=== PATIENT | male | born 1970 | race Caucasian/White ===

== ENCOUNTER 2020-04-23 13:04 | Inpatient (IN) | payer BC, OTHER ==
[~2020-04-23] VITALS: Ht 182.8 cm; Wt 204.7 kg
[~2020-04-23 13:04] MED LIST: CETI5TAB6 PO; HYDR-757 PO; MONT10TA21 PO
[2020-04-23] MEDS ORDERED: ACETAMINOPHEN 500 MG TAB (TYLENOL) PO PRN ×2 (13:45→16:30)
[2020-04-23] MEDS ORDERED: LACTATED RINGERS 1,000 ML IV ONE ×3 (13:45→16:12)
[2020-04-23 13:53] LABS: BASOPHILS % (AUTO) 1 % (0-10); EOSINOPHILS # (AUTO) 0.1 10^3/uL (0.0-0.3); EOSINOPHILS % (AUTO) 1 % (0-10); HEMATOCRIT 45 % (40-54); HEMOGLOBIN 13.5 g/dL (13.3-17.7); LYMPHOCYTES # (AUTO) 1.2 10^3/uL (1.0-4.0); LYMPHOCYTES % (AUTO) 27 % (12-44); MEAN CORPUSCULAR HEMOGLOBIN 23 pg (25-34); MEAN CORPUSCULAR HGB CONC 30 g/dL (32-36); MEAN CORPUSCULAR VOLUME 76 fL (80-99); MEAN PLATELET VOLUME 9.3 fL (9.0-12.2); MONOCYTES # (AUTO) 0.3 10^3/uL (0.0-1.0); MONOCYTES % (AUTO) 8 % (0-12); NEUTROPHILS # (AUTO) 2.8 10^3/uL (1.8-7.8); NEUTROPHILS % (AUTO) 64 % (42-75); PLATELET COUNT 201 10^3/uL (130-400); WHITE BLOOD COUNT 4.4 10^3/uL (4.3-11.0)
[2020-04-23 13:53] LABS: ABG BASE EXCESS 4.2 MMOL/L (-2.5-2.5); ABG OXYGEN SATURATION 95 % (94-100); ABG PCO2 48 MMHG (35-45); ABG PO2 83 MMHG (79-93); ABG TCO2 30.2 MMOL/L (21.0-31.0)
[2020-04-23 13:54] LABS: ALLENS TEST POSITIVE; INSPIRED O2 6 L; PATIENT TEMP 99.3; VENTILATOR NO
--- NOTE | 2020-04-23 13:57 | ED Respiratory ---
General Chief Complaint: Respiratory Problems Stated Complaint: COUGH,SOB, COVID + Nursing Triage Note: Pt ambulatory to ED. Pt reports being diagnosed COVID + yesterday. Pt reports symptoms for one week. Pt went to clinic today for chest xray and pt was sent to ED before having chest xray. Source: patient Exam Limitations: no limitations History of Present Illness Date Seen by Provider: Apr 23, 2020 Time Seen by Provider: 13:29 Initial Comments Patient presents the ER by private conveyance from urgent care with chief complaint of oxygen saturations of 90% on room air. No history of lung disease. No history of oxygen dependence. No pain. Took some naproxen this morning because he is been having fever and symptoms of Covid for about 1 week. He was diagnosed yesterday with Covid at the clinic. He follows with [facility] for primary care. No history of diabetes or cholesterol. No history of heart disease. No history of smoking. His is also in the hospital for respiratory failure related to COVID-19. Lots of dry coughing but no productive cough. Allergies and Home Medications Allergies Coded Allergies: No Known Drug Allergies (Unverified , 05/24/14) Home Medications Cetirizine Hcl 5 Mg Tablet, 5 MG PO DAILY, (Reported) Hydrocodone Bit/Acetaminophen 1 Each Tablet, 1-2 EA PO Q6H PRN for MILD PAIN Prescribed by: MARY TEJADA on 05/24/142128 Patient Home Medication List Home Medication List Reviewed: Yes Review of Systems Review of Systems Constitutional: No chills, No diaphoresis EENTM: No ear discharge, No ear pain Respiratory: cough; No phlegm; short of breath; No wheezing Cardiovascular: No chest pain, No edema, No Hx of Intervention, No palpitations Gastrointestinal: No abdominal pain, No constipation, No diarrhea, No nausea Genitourinary: No discharge, No dysuria Musculoskeletal: No back pain, No joint pain All Other Systems Reviewed Negative Unless Noted: Yes Past Haqheto-Uppxcx-Ljvvwo Hx Patient Social History Alcohol Use: Denies Use Recreational Drug Use: No 2nd Hand Smoke Exposure: No Recent Foreign Travel: No Contact w/Someone Who Travel: No Recent Infectious Disease Expo: No Immunizations Up To Date Tetanus Booster (TDap): Unknown Past Medical History Surgeries: Yes Gallbladder Respiratory: No Cardiac: No Neurological: No Reproductive Disorders: No Sexually Transmitted Disease: No HIV/AIDS: No Gastrointestinal: No Musculoskeletal: No Endocrine: No Cancer: No Psychosocial: No Integumentary: No Blood Disorders: No Adverse Reaction/Blood Tranf: No Physical Exam Vital Signs - First Documented 04/23/20 13:15 Temp 37.2 Pulse 115 Resp 26 B/P (MAP) 195/123 (147) Pulse Ox 95 O2 Delivery Nasal Cannula O2 Flow Rate 6.00 Capillary Refill : Less Than 3 Seconds Height: 6'2" Weight: 440lbs. oz. 199.460572vb; 61.00 BMI Method: General Appearance: moderate distress, obese Eyes: Bilateral Eye Normal Inspection, Bilateral Eye PERRL, Bilateral Eye EOMI HEENT: PERRL/EOMI; No pharynx normal Neck: full range of motion, normal inspection (Oropharynx is) Respiratory: lungs clear, respiratory distress (86% on room air with labored breathing), accessory muscle use Cardiovascular: normal peripheral pulses, regular rate, rhythm, no edema Gastrointestinal: normal bowel sounds, non tender, soft Extremities: non-tender, normal capillary refill Neurologic/Psychiatric: no motor/sensory deficits, alert, normal mood/affect, oriented x 3 Skin: normal color, diaphoresis Focused Exam Lactate Level 04/23/20 13:50: Lactic Acid Level 1.02 Lactic Acid Level Laboratory Tests Test 04/23/20 13:50 Lactic Acid Level 1.02 MMOL/L (0.50-2.00) Progress/Results/Core Measures Suspected Sepsis Recent Fever Within 48 Hours: No Infection Criteria Present: None New/Unexplained Altered Menta: No Sepsis Screen: No Definite Risk SIRS Temperature: Pulse: 115 Respiratory Rate: 26 Laboratory Tests 04/23/20 13:35: White Blood Count 4.4 Blood Pressure 195 /123 Mean: 147 04/23/20 13:50: Lactic Acid Level 1.02 Laboratory Tests 04/23/20 13:35: Creatinine 0.87, INR Comment 1.0, Platelet Count 201, Total Bilirubin 0.3 Results/Orders Lab Results Laboratory Tests Test 04/23/20 13:24 04/23/20 13:35 04/23/20 13:50 04/23/20 14:30 Range/Units Blood Gas Puncture Site RIGHT RADIAL Blood Gas Patient Temperature 99.3 Arterial Blood pH 7.40 7.37-7.43 Arterial Blood Partial Pressure CO2 48 H 35-45 MMHG Arterial Blood Partial Pressure O2 83 79-93 MMHG Arterial Blood HCO3 29 H 23-27 MMOL/L Arterial Blood Total CO2 30.2 21.0-31.0 MMOL/L Arterial Blood Oxygen Saturation 95 94-100 % Arterial Blood Base Excess 4.2 H -2.5-2.5 MMOL/L Mariano Test POSITIVE Blood Gas Ventilator Setting NO Blood Gas Inspired Oxygen 6 L White Blood Count 4.4 4.3-11.0 10^3/uL Red Blood Count 5.96 H 4.30-5.52 10^6/uL Hemoglobin 13.5 13.3-17.7 g/dL Hematocrit 45 40-54 % Mean Corpuscular Volume 76 L 80-99 fL Mean Corpuscular Hemoglobin 23 L 25-34 pg Mean Corpuscular Hemoglobin Concent 30 L 32-36 g/dL Red Cell Distribution Width 17.7 H 10.0-14.5 % Platelet Count 201 130-400 10^3/uL Mean Platelet Volume 9.3 9.0-12.2 fL Immature Granulocyte % (Auto) 1 % Neutrophils (%) (Auto) 64 42-75 % Lymphocytes (%) (Auto) 27 12-44 % Monocytes (%) (Auto) 8 0-12 % Eosinophils (%) (Auto) 1 0-10 % Basophils (%) (Auto) 1 0-10 % Neutrophils # (Auto) 2.8 1.8-7.8 10^3/uL Lymphocytes # (Auto) 1.2 1.0-4.0 10^3/uL Monocytes # (Auto) 0.3 0.0-1.0 10^3/uL Eosinophils # (Auto) 0.1 0.0-0.3 10^3/uL Basophils # (Auto) 0.0 0.0-0.1 10^3/uL Immature Granulocyte # (Auto) 0.0 0.0-0.1 10^3/uL Prothrombin Time 13.0 12.2-14.7 SEC INR Comment 1.0 0.8-1.4 Activated Partial Thromboplast Time 27 24-35 SEC D-Dimer 0.57 H 0.00-0.49 UG/ML Sodium Level 141 135-145 MMOL/L Potassium Level 4.2 3.6-5.0 MMOL/L Chloride Level 105 98-107 MMOL/L Carbon Dioxide Level 27 21-32 MMOL/L Anion Gap 9 5-14 MMOL/L Blood Urea Nitrogen 11 7-18 MG/DL Creatinine 0.87 0.60-1.30 MG/DL Estimat Glomerular Filtration Rate > 60 BUN/Creatinine Ratio 13 Glucose Level 134 H 70-105 MG/DL Calcium Level 8.9 8.5-10.1 MG/DL Corrected Calcium 9.3 8.5-10.1 MG/DL Total Bilirubin 0.3 0.1-1.0 MG/DL Aspartate Amino Transf (AST/SGOT) 52 H 5-34 U/L Alanine Aminotransferase (ALT/SGPT) 44 0-55 U/L Alkaline Phosphatase 147 H 40-136 U/L C-Reactive Protein High Sensitivity 5.29 H 0.00-0.50 MG/DL Total Protein 6.7 6.4-8.2 GM/DL Albumin 3.5 3.2-4.5 GM/DL Procalcitonin 0.12 H <0.10 NG/ML Lactic Acid Level 1.02 0.50-2.00 MMOL/L Urine Color YELLOW Urine Clarity CLEAR Urine pH 6.5 5-9 Urine Specific [place] 1.020 1.016-1.022 Urine Protein 1+ H NEGATIVE Urine Glucose (UA) NEGATIVE NEGATIVE Urine Ketones NEGATIVE NEGATIVE Urine Nitrite NEGATIVE NEGATIVE Urine Bilirubin NEGATIVE NEGATIVE Urine Urobilinogen 0.2 < = 1.0 MG/DL Urine Leukocyte Esterase NEGATIVE NEGATIVE Urine RBC (Auto) NEGATIVE NEGATIVE Urine RBC NONE /HPF Urine WBC RARE /HPF Urine Squamous Epithelial Cells RARE /HPF Urine Crystals NONE /LPF Urine Bacteria NEGATIVE /HPF Urine Casts NONE /LPF Urine Mucus SMALL H /LPF Urine Culture Indicated CULTURE PENDING My Orders Orders - AIXA SNEED Cbc With Automated Diff (04/23/20 13:42) Comprehensive Metabolic Panel (04/23/20 13:42) Blood Culture (04/23/20 13:42) Sputum Culture (04/23/20 13:42) Urinalysis (04/23/20 13:42) Urine Culture (04/23/20 13:42) Protime With Inr (04/23/20 13:42) Partial Thromboplastin Time (04/23/20 13:42) Chest 1 View, Ap/Pa Only (04/23/20 13:42) Acetaminophen Tablet (Tylenol Tablet) (04/23/20 13:45) Ed Iv/Invasive Line Start (04/23/20 13:42) Ed Iv/Invasive Line Start (04/23/20 13:42) Vital Signs Adult Sepsis Patie Q15M (04/23/20 13:42) O2 (04/23/20 13:42) Remove Rings In Anticipation O (04/23/20 13:42) Lactic Acid Analyzer (04/23/20 13:42) Influenza A And B Antigens (04/23/20 13:42) Lactated Ringers (Lr 1000 Ml Iv Solution (04/23/20 13:45) Lactated Ringers (Lr 1000 Ml Iv Solution (04/23/20 13:45) Arterial Blood Gas (04/23/20 13:42) Dexamethasone Injection (Decadron Injec (04/23/20 14:00) Hs C Reactive Protein (04/23/20 14:12) Procalcitonin (Pct) (04/23/20 14:12) Fibrin Degradation Products (04/23/20 14:12) General/Regular (04/23/20 Lunch) Medications Given in ED Current Medications Medications Dose Ordered Sig/Albert Route Start Time Stop Time Status Last Admin Dose Admin Acetaminophen 1,000 mg ONCE PRN PO 04/23/20 13:45 04/23/20 14:12 DC 04/23/20 14:03 1,000 MG Dexamethasone Sodium Phosphate 6 mg ONCE ONCE IV 04/23/20 14:00 04/23/20 14:01 DC 04/23/20 14:04 6 MG Lactated Ringer's 1,000 ml @ 0 mls/hr Q0M ONCE IV 04/23/20 13:45 04/23/20 13:49 DC 04/23/20 14:11 1,000 MLS/HR Lactated Ringer's 1,000 ml @ 0 mls/hr Q0M ONCE IV 04/23/20 13:45 04/23/20 13:49 DC 04/23/20 14:13 1,000 MLS/HR Vital Signs/I&O 04/23/20 13:15 Temp 37.2 Pulse 115 Resp 26 B/P (MAP) 195/123 (147) Pulse Ox 95 O2 Delivery Nasal Cannula O2 Flow Rate 6.00 Capillary Refill : Less Than 3 Seconds Blood Pressure Mean: 147 Progress Note : Time: 14:11 Progress Note Based on adjusted ideal body weight of 270 pounds we gave him 2 L which is a little less than 20 mL/kg because we suspect he has Covid viral pneumonia. If he has a bacterial pneumonia we will give him more IV fluids. He is quite diaphoretic and appears to be dry although he has a good blood pressure. 6 L by oxygen mask brings his oxygen sats to mid 90s. Plan to get labs and chest x-ray but we will hold off on antibiotics until we have evidence of bacterial infection. Diagnostic Imaging Diagonstic Imaging: Xray Plain Films/CT/US/NM/MRI: chest Comments [facility]. [place], [place] NAME: STEFANO HONG MED REC#: [id number] PT STATUS: REG ER : 1970 PHYSICIAN: AIXA SNEED MD ADMIT DATE: 04/23/20/ER Signed Date of Exam:04/23/20 CHEST 1 VIEW, AP/PA ONLY INDICATION: COVID. FINDINGS: The heart is enlarged. There is some prominence of the central pulmonary vascularity. There is perihilar interstitial opacities which may be a viral infectious versus edema. No effusion or pneumothorax. IMPRESSION: Prominence of the heart and central vascularity, perihilar interstitial opacities could be edema or reflect pneumonia. Dictated by: Dictated on workstation # [id number] Dict: 04/23/20 1426 Trans: 04/23/20 1450 CVB [id number] Interpreted by: JERRY GROVER Electronically signed by: JERRY GROVER 04/23/20 1450 Reviewed: Reviewed by Me Departure Communication (Admissions) Time/Spoke to Admitting Phy: 14:30 Discussed the case with Dr. Carrillo and she agrees to accept the patient to the stepdown unit on oxygen and get consent for convalescent plasma. Decadron. Impression Primary Impression: COVID-19 Additional Impression: Acute hypoxemic respiratory failure due to COVID-19 Disposition: ADMITTED INPATIENT Condition: Stable Admissions Decision to Admit Reason: Admit from ER (General) Decision to Admit/Date: Apr 23, 2020 Time/Decision to Admit Time: 14:00 Departure-Patient Inst. Referrals: RAGHAV LAUGHLIN DO (PCP/Family) Primary Care Physician AIXA SNEED Apr 23, 2020 13:57
[2020-04-23 13:58] LABS: ALBUMIN 3.5 GM/DL (3.2-4.5)
[2020-04-23 13:59] LABS: CHLORIDE 105 MMOL/L (98-107); POTASSIUM 4.2 MMOL/L (3.6-5.0); SODIUM 141 MMOL/L (135-145)
[2020-04-23 14:00] LABS: CALCIUM 8.9 MG/DL (8.5-10.1)
[2020-04-23 14:01] LABS: GLUCOSE 134 MG/DL (70-105); TOTAL PROTEIN 6.7 GM/DL (6.4-8.2)
[2020-04-23 14:02] LABS: CARBON DIOXIDE 27 MMOL/L (21-32)
[2020-04-23 14:03] LABS: BILIRUBIN,TOTAL 0.3 MG/DL (0.1-1.0)
[2020-04-23 14:04] LABS: ALKALINE PHOSPHATASE 147 U/L (40-136)
[2020-04-23 14:05] LABS: CREATININE SERUM 0.87 MG/DL (0.60-1.30); GFR ESTIMATED > 60
[2020-04-23 14:06] LABS: BUN/CREATININE RATIO 13
[2020-04-23 14:08] LABS: ALANINE AMINOTRANSFERASE 44 U/L (0-55)
--- NOTE | 2020-04-23 14:29 | Diagnostic Imaging Report ---
INDICATION: COVID. FINDINGS: The heart is enlarged. There is some prominence of the central pulmonary vascularity. There is perihilar interstitial opacities which may be a viral infectious versus edema. No effusion or pneumothorax. IMPRESSION: Prominence of the heart and central vascularity, perihilar interstitial opacities could be edema or reflect pneumonia. Dictated by: Dictated on workstation # [id number]
[2020-04-23 14:38] LABS: BILIRUBIN,URINE NEGATIVE (NEGATIVE); CLARITY,URINE CLEAR; COLOR,URINE YELLOW; GLUCOSE, URINE (UA) NEGATIVE (NEGATIVE); KETONES,URINE NEGATIVE (NEGATIVE); LEUKOCYTE ESTERASE ,URINE NEGATIVE (NEGATIVE); NITRITE,URINE NEGATIVE (NEGATIVE); PH,URINE 6.5 (5-9); PROTEIN,URINE 1+ (NEGATIVE)
[2020-04-23 14:45] LABS: BACTERIA,URINE NEGATIVE /HPF; SQUAMOUS EPITHELIAL CELL,UR RARE /HPF; WBC,URINE RARE /HPF
[2020-04-23] MEDS ORDERED: hydrALAZINE (APESOLINE) 20 MG/ML VIAL IV ONE (15:00)
[2020-04-23] MEDS ORDERED: REMDESIVIR INJ 200 MG in NS (IVPB) 210 ML IV NR (15:00)
[2020-04-23 16:17] VITALS: BP 202/116
[2020-04-23] MEDS: LACTATED RINGERS 1,000 ML IV SCH ×2 (16:26→21:55)
[2020-04-23] MEDS ORDERED: IBUPROFEN 800 MG (MOTRIN) TAB PO PRN (16:30)
[2020-04-23] MEDS ORDERED: LORazepam INJ 2 MG/ML (ATIVAN) VIAL IV PRN (16:30)
[2020-04-23] MEDS ORDERED: ONDANSETRON 4 MG/2 ML (SDV) Z0FRAN IV PRN (16:30)
[2020-04-23 16:37] VITALS: BP 202/116
[2020-04-23] MEDS ORDERED: RT-ALBUTEROL INHALER HFA (VENTOLIN HFA) 18 GM IH PRN (16:45)
[2020-04-23 16:46] VITALS: BP 202/116
[2020-04-23] MEDS: ENOXAPARIN 60 MG/0.6 ML (LOVENOX) SYR SC SCH (17:17)
[2020-04-23] MEDS ORDERED: hydrALAZINE (APESOLINE) 20 MG/ML VIAL ONE (18:01)
[2020-04-23] MEDS: hydrALAZINE (APESOLINE) 20 MG/ML VIAL IV PRN (18:10)
[2020-04-23 19:36] VITALS: BP_SYST 119; BP_SYST 191; BP_DIAS 115
[2020-04-23] MEDS ORDERED: NITROGLYCERIN 2% OINT 1 GM UNIT DOSE PACKET TOP PRN (21:30)
[2020-04-23] MEDS ORDERED: NITROGLYCERIN 2% OINT 1 GM UNIT DOSE PACKET ONE (21:33)
[2020-04-23] MEDS: RT-ALBUTEROL INHALER HFA (VENTOLIN HFA) 18 GM IH SCH (22:29)
[2020-04-24] VITALS (9 sets, daily range): BP systolic 129–209; BP diastolic 74–139
[2020-04-24] MEDS: hydrALAZINE (APESOLINE) 20 MG/ML VIAL IV PRN ×3 (01:53→22:14)
[2020-04-24] MEDS: RT-ALBUTEROL INHALER HFA (VENTOLIN HFA) 18 GM IH SCH ×6 (03:00→23:49)
[2020-04-24] MEDS: LACTATED RINGERS 1,000 ML IV SCH (03:34)
--- NOTE | 2020-04-24 04:44 | Pulmonary Consultation ---
History of Present Illness History of Present Illness Date Seen by Provider: Apr 24, 2020 Time Seen by Provider: 04:39 Date of Admission Allergies and Home Medications Allergies Coded Allergies: No Known Drug Allergies (Unverified , 05/24/14) Home Medications Cetirizine Hcl 5 Mg Tablet, 5 MG PO DAILY, (Reported) Hydrocodone Bit/Acetaminophen 1 Each Tablet, 1-2 EA PO Q6H PRN for MILD PAIN Prescribed by: MARY TEJADA on 05/24/142128 Past Qssmgpb-Vxawmk-Rkqfnf Hx Patient Social History Alcohol Use: Denies Use Recreational Drug Use: No 2nd Hand Smoke Exposure: No Recent Foreign Travel: No Contact w/Someone Who Travel: No Recent Infectious Disease Expo: No Immunizations Up To Date Tetanus Booster (TDap): Unknown Date of Influenza Vaccine: Mar 09, 2020 Past Medical History Surgeries: Yes Gallbladder Respiratory: No Cardiac: No Neurological: No Reproductive Disorders: No Sexually Transmitted Disease: No HIV/AIDS: No Gastrointestinal: No Musculoskeletal: No Endocrine: No Cancer: No Psychosocial: No Integumentary: No Blood Disorders: No Adverse Reaction/Blood Tranf: No Review of Systems Time Seen by Provider: 04:46 Sepsis Event Evaluation Height, Weight, BMI Height: 6'2" Weight: 440lbs. oz. 199.660941qo; 61.07 BMI Method: Exam Exam Vital Signs Date Time Temp Pulse Resp B/P (MAP) Pulse Ox O2 Delivery O2 Flow Rate FiO2 04/24/20 03:34 36.4 101 20 181/124 (143) 94 Nasal Cannula 8.00 04/24/20 03:00 94 High Flow N/C 7.00 04/24/20 02:10 8.00 04/24/20 01:54 36.3 103 20 178/109 (132) 91 Nasal Cannula 7.00 04/24/20 00:35 95 Nasal Cannula 10.00 04/24/20 00:03 36.4 105 20 157/107 (124) 93 Nasal Cannula 6.00 04/23/20 22:30 90 Nasal Cannula 5.00 04/23/20 21:00 94 Nasal Cannula 10.00 04/23/20 20:00 95 Nasal Cannula 10.00 04/23/20 19:46 90 Nasal Cannula 5.00 04/23/20 19:36 36.2 110 19 191/115 (140) 95 Nasal Cannula 10.00 04/23/20 16:46 36.4 105 22 202/116 96 Nasal Cannula 10.00 10.00 04/23/20 16:37 36.4 105 96 04/23/20 16:30 96 Nasal Cannula 10.00 04/23/20 16:17 36.4 105 22 202/116 (144) 96 Nasal Cannula 10.00 04/23/20 16:03 37.2 99 20 198/110 (147) 95 6.00 04/23/20 13:15 37.2 115 26 195/123 (147) 95 Nasal Cannula 6.00 I & O 04/24/20 07:00 Intake Total 4290 ml Output Total 500 ml Balance 3790 ml Height & Weight Height: 6'2" Weight: 440lbs. oz. 199.295081lj; 61.07 BMI Method: Capillary Refill: Less Than 3 Seconds Gastrointestinal: normal bowel sounds, non tender, soft Results Lab Laboratory Tests 04/23/20 13:35 Assessment/Plan Assessment/Plan COVID PNA with hypoxia -Change NC to Vapotherm - Start rocephin and azithromycin -Decadron 6mg PO daily -CVP -pending -Remdesivir HTN with tachycardia -Add Lopressor, Lisinopril Leukopenia -monitor Anemia -Monitor Morbid obesity MARY GERMAIN DO Apr 24, 2020 04:44
[2020-04-24] MEDS ORDERED: AZITHROMYCIN INJECTION 500 MG in NS (IVPB) 250 ML IV ONE (04:45)
[2020-04-24] MEDS ORDERED: FUROSEMIDE 40 MG/4 ML INJ (LASIX) IVP ONE (04:45)
[2020-04-24] MEDS ORDERED: cefTRIAXone 1,000 MG IV (ROCEPHIN) VIAL ONE (05:33)
[2020-04-24 06:03] LABS: BASOPHILS % (AUTO) 0 % (0-10); EOSINOPHILS % (AUTO) 0 % (0-10); HEMATOCRIT 42 % (40-54); HEMOGLOBIN 12.6 g/dL (13.3-17.7); LYMPHOCYTES # (AUTO) 0.9 10^3/uL (1.0-4.0); LYMPHOCYTES % (AUTO) 31 % (12-44); MEAN CORPUSCULAR HEMOGLOBIN 23 pg (25-34); MEAN CORPUSCULAR HGB CONC 30 g/dL (32-36); MEAN CORPUSCULAR VOLUME 76 fL (80-99); MEAN PLATELET VOLUME 9.3 fL (9.0-12.2); MONOCYTES # (AUTO) 0.2 10^3/uL (0.0-1.0); MONOCYTES % (AUTO) 9 % (0-12); NEUTROPHILS # (AUTO) 1.7 10^3/uL (1.8-7.8); NEUTROPHILS % (AUTO) 60 % (42-75); PLATELET COUNT 202 10^3/uL (130-400); WHITE BLOOD COUNT 2.8 10^3/uL (4.3-11.0)
[2020-04-24] MEDS: cefTRIAXone FOR IV USE 1,000 MG in WATER (STERILE) FOR INJECTION 10 ML IV SCH (06:05)
[2020-04-24] MEDS: ENOXAPARIN 60 MG/0.6 ML (LOVENOX) SYR SC SCH ×2 (06:06→18:04)
[2020-04-24 06:08] LABS: ALBUMIN 3.3 GM/DL (3.2-4.5); CHLORIDE 103 MMOL/L (98-107); POTASSIUM 3.6 MMOL/L (3.6-5.0); SODIUM 140 MMOL/L (135-145)
[2020-04-24 06:10] LABS: CALCIUM 8.3 MG/DL (8.5-10.1)
[2020-04-24 06:11] LABS: GLUCOSE 231 MG/DL (70-105); TOTAL PROTEIN 6.2 GM/DL (6.4-8.2)
[2020-04-24 06:12] LABS: CARBON DIOXIDE 26 MMOL/L (21-32)
[2020-04-24 06:13] LABS: BILIRUBIN,TOTAL 0.3 MG/DL (0.1-1.0)
[2020-04-24 06:14] LABS: ALKALINE PHOSPHATASE 140 U/L (40-136); CREATININE SERUM 0.82 MG/DL (0.60-1.30); GFR ESTIMATED > 60
[2020-04-24 06:15] LABS: BUN/CREATININE RATIO 13
[2020-04-24 06:17] LABS: ALANINE AMINOTRANSFERASE 49 U/L (0-55)
[2020-04-24] MEDS ORDERED: morphine INJ 10 MG/ML 1ML (SYR OR VIAL) IVP STA (06:23)
[2020-04-24] MEDS ORDERED: meTOprolol 5 MG/5 ML (LOPRESSOR) VIAL IV ONE (06:30)
--- NOTE | 2020-04-24 07:26 | Diagnostic Imaging Report ---
INDICATION: Covid pneumonia. COMPARISON: 04/23/2020. FINDINGS: Single view of the chest demonstrates cardiac enlargement with continued central vascular congestion. There are persistent but decreased hilar and basilar infiltrates. There is no pneumothorax. Osseous structures are stable. IMPRESSION: Improving aeration of both lungs. Dictated by: Dictated on workstation # [id number]
[2020-04-24] MEDS: FAMOTIDINE 20MG/2ML IV (PEPCID) IV SCH ×2 (09:07→20:33)
[2020-04-24] MEDS: meTOprolol TARTRATE 50 MG (LOPRESSOR) TAB PO SCH ×2 (09:07→20:33)
[2020-04-24] MEDS: lisINopril 10 MG (PRINIVIL) TABLET PO SCH (09:07)
[2020-04-24] MEDS ORDERED: CETI10TA17 PO (14:04)
[2020-04-24] MEDS ORDERED: NAPR220C11 PO (14:04)
[2020-04-24] MEDS ORDERED: PEG15DRO9 OU (14:04)
[2020-04-24] MEDS: REMDESIVIR INJ 100 MG in NS (IVPB) 230 ML IV SCH (14:53)
[2020-04-25] VITALS (7 sets, daily range): BP systolic 145–176; BP diastolic 83–112
[2020-04-25] MEDS: RT-ALBUTEROL INHALER HFA (VENTOLIN HFA) 18 GM IH SCH ×6 (02:19→22:18)
[2020-04-25] MEDS: cefTRIAXone FOR IV USE 1,000 MG in WATER (STERILE) FOR INJECTION 10 ML IV SCH (04:57)
[2020-04-25] MEDS: ENOXAPARIN 60 MG/0.6 ML (LOVENOX) SYR SC SCH ×2 (04:58→17:01)
--- NOTE | 2020-04-25 05:27 | Pulmonary Progress Note ---
Subjective Time Seen by a Provider: 05:25 Subjective/Events-last exam No complications noted. Sepsis Event Evaluation Height, Weight, BMI Height: 6'2" Weight: 440lbs. oz. 199.785077vv; 61.07 BMI Method: Focused Exam Lactate Level 04/23/20 13:50: Lactic Acid Level 1.02 Exam Exam Vital Signs Date Time Temp Pulse Resp B/P (MAP) Pulse Ox O2 Delivery O2 Flow Rate FiO2 04/25/20 04:56 High Flow N/C 4.00 04/25/20 04:54 36.4 89 18 147/86 (106) 95 Nasal Cannula 4.00 04/25/20 02:19 93 High Flow N/C 5.00 04/25/20 00:11 High Flow N/C 5.00 04/24/20 23:55 36.2 85 16 129/74 (92) 94 Nasal Cannula 3.00 04/24/20 21:30 94 Nasal Cannula 5.00 04/24/20 20:35 High Flow N/C 5.00 04/24/20 20:30 36.4 91 22 203/139 (160) 95 Nasal Cannula 3.00 04/24/20 16:00 High Flow N/C 5.00 04/24/20 15:46 36.2 102 23 183/109 (133) 93 High Flow N/C 5.00 04/24/20 14:18 92 High Flow N/C 5.00 04/24/20 12:00 94 Nasal Cannula 8.00 04/24/20 11:42 37.6 94 21 209/128 (155) 92 Nasal Cannula 6.00 04/24/20 09:39 94 High Flow N/C 5.00 04/24/20 08:00 95 Nasal Cannula 8.00 04/24/20 08:00 95 Nasal Cannula 8.00 04/24/20 07:45 36.6 98 21 178/115 (136) 93 Nasal Cannula 6.00 04/24/20 06:50 96 22 195/119 (144) 91 Nasal Cannula 6.00 04/24/20 06:28 96 High Flow N/C 6.00 I & O 04/25/20 07:00 Intake Total 1300 ml Balance 1300 ml Height & Weight Height: 6'2" Weight: 440lbs. oz. 199.324676zs; 61.07 BMI Method: Capillary Refill: Less Than 3 Seconds Gastrointestinal: normal bowel sounds, non tender, soft Results Lab Laboratory Tests 04/23/20 13:35 04/24/20 05:47 Assessment/Plan Assessment/Plan COVID PNA with hypoxia - NC 4 liters -rocephin and azithromycin -Decadron 6mg PO daily -CVP -pending -Remdesivir HTN with tachycardia -Add Lopressor, Lisinopril Leukopenia -monitor Anemia -Monitor Morbid obesity MARY GERMAIN DO Apr 25, 2020 05:27
[2020-04-25 06:21] LABS: BASOPHILS % (AUTO) 0 % (0-10); EOSINOPHILS % (AUTO) 0 % (0-10); HEMATOCRIT 41 % (40-54); HEMOGLOBIN 12.2 g/dL (13.3-17.7); LYMPHOCYTES % (AUTO) 29 % (12-44); MEAN CORPUSCULAR HEMOGLOBIN 23 pg (25-34); MEAN CORPUSCULAR HGB CONC 30 g/dL (32-36); MEAN CORPUSCULAR VOLUME 76 fL (80-99); MEAN PLATELET VOLUME 9.5 fL (9.0-12.2); MONOCYTES # (AUTO) 0.4 10^3/uL (0.0-1.0); MONOCYTES % (AUTO) 12 % (0-12); NEUTROPHILS % (AUTO) 58 % (42-75); PLATELET COUNT 239 10^3/uL (130-400); WHITE BLOOD COUNT 3.5 10^3/uL (4.3-11.0)
[2020-04-25 06:35] LABS: ALBUMIN 3.2 GM/DL (3.2-4.5); CHLORIDE 107 MMOL/L (98-107); POTASSIUM 3.9 MMOL/L (3.6-5.0); SODIUM 142 MMOL/L (135-145)
[2020-04-25 06:37] LABS: GLUCOSE 217 MG/DL (70-105)
[2020-04-25 06:38] LABS: TOTAL PROTEIN 5.9 GM/DL (6.4-8.2)
[2020-04-25 06:39] LABS: BILIRUBIN,TOTAL 0.3 MG/DL (0.1-1.0); CARBON DIOXIDE 27 MMOL/L (21-32)
[2020-04-25 06:41] LABS: ALKALINE PHOSPHATASE 181 U/L (40-136); CREATININE SERUM 0.82 MG/DL (0.60-1.30); GFR ESTIMATED > 60
[2020-04-25 06:42] LABS: BUN/CREATININE RATIO 18
[2020-04-25 06:44] LABS: ALANINE AMINOTRANSFERASE 72 U/L (0-55)
[2020-04-25] MEDS: AZITHROMYCIN 250 MG TAB (ZITHROMAX) PO SCH (07:45)
[2020-04-25] MEDS: lisINopril 10 MG (PRINIVIL) TABLET PO SCH (07:45)
[2020-04-25] MEDS: FAMOTIDINE 20MG/2ML IV (PEPCID) IV SCH (07:45)
[2020-04-25] MEDS: meTOprolol TARTRATE 50 MG (LOPRESSOR) TAB PO SCH ×2 (07:45→20:41)
[2020-04-25] MEDS ORDERED: AZITHROMYCIN INJECTION 250 MG in NS (IVPB) 250 ML IV SCH (09:00)
[2020-04-25] MEDS: REMDESIVIR INJ 100 MG in NS (IVPB) 230 ML IV SCH (14:10)
[2020-04-25] MEDS: FAMOTIDINE 20 MG (PEPCID) TABLET PO SCH (20:41)
[2020-04-26] VITALS (8 sets, daily range): BP systolic 146–192; BP diastolic 75–103
[2020-04-26] MEDS: RT-ALBUTEROL INHALER HFA (VENTOLIN HFA) 18 GM IH SCH ×6 (02:27→22:39)
[2020-04-26] MEDS: ENOXAPARIN 60 MG/0.6 ML (LOVENOX) SYR SC SCH ×2 (05:28→17:58)
[2020-04-26] MEDS: cefTRIAXone FOR IV USE 1,000 MG in WATER (STERILE) FOR INJECTION 10 ML IV SCH (05:28)
[2020-04-26 05:55] LABS: ALBUMIN 3.3 GM/DL (3.2-4.5); CHLORIDE 106 MMOL/L (98-107); POTASSIUM 3.6 MMOL/L (3.6-5.0); SODIUM 141 MMOL/L (135-145)
[2020-04-26 05:57] LABS: GLUCOSE 202 MG/DL (70-105)
[2020-04-26 05:58] LABS: CARBON DIOXIDE 27 MMOL/L (21-32)
[2020-04-26 05:59] LABS: BILIRUBIN,TOTAL 0.3 MG/DL (0.1-1.0)
[2020-04-26 06:01] LABS: ALKALINE PHOSPHATASE 155 U/L (40-136); CREATININE SERUM 0.94 MG/DL (0.60-1.30); GFR ESTIMATED > 60
[2020-04-26 06:02] LABS: BUN/CREATININE RATIO 18
[2020-04-26 06:04] LABS: ALANINE AMINOTRANSFERASE 65 U/L (0-55)
--- NOTE | 2020-04-26 06:12 | Pulmonary Progress Note ---
Subjective Time Seen by a Provider: 06:10 Subjective/Events-last exam No complications noted. Sepsis Event Evaluation Height, Weight, BMI Height: 6'2" Weight: 440lbs. oz. 199.069227dh; 61.07 BMI Method: Focused Exam Lactate Level 04/23/20 13:50: Lactic Acid Level 1.02 Exam Exam Vital Signs Date Time Temp Pulse Resp B/P (MAP) Pulse Ox O2 Delivery O2 Flow Rate FiO2 04/26/20 04:00 Nasal Cannula 4.00 04/26/20 04:00 Nasal Cannula 4.00 04/26/20 03:42 36.0 72 22 146/81 (102) 93 High Flow N/C 4.00 04/26/20 02:27 96 Room Air 04/26/20 00:12 High Flow N/C 4.00 04/25/20 23:53 36.4 87 20 147/83 (104) 93 High Flow N/C 4.00 04/25/20 21:00 94 High Flow N/C 4.00 04/25/20 20:42 High Flow N/C 4.00 04/25/20 20:07 36.5 86 22 176/112 (133) 95 High Flow N/C 4.00 04/25/20 15:51 145/86 (105) 04/25/20 15:37 90 High Flow N/C 4.00 04/25/20 15:09 35.4 90 24 92 High Flow N/C 4.00 04/25/20 15:02 High Flow N/C 4.00 04/25/20 12:45 162/92 (115) 04/25/20 12:00 High Flow N/C 4.00 04/25/20 11:45 35.0 79 20 165/100 (121) 91 High Flow N/C 4.00 04/25/20 11:29 90 Nasal Cannula 4.00 04/25/20 08:44 92 High Flow N/C 4.00 04/25/20 08:41 High Flow N/C 4.00 04/25/20 07:43 35.1 98 20 154/91 (112) 92 High Flow N/C 4.00 04/25/20 07:12 93 Nasal Cannula 4.00 I & O 04/26/20 07:00 Intake Total 2920 ml Balance 2920 ml Height & Weight Height: 6'2" Weight: 440lbs. oz. 199.090385py; 61.07 BMI Method: General Appearance: No Apparent Distress, WD/WN HEENT: PERRL/EOMI, TMs Normal, Normal ENT Inspection, Pharynx Normal Neck: Full Range of Motion, Normal Inspection, Non Tender, Supple Respiratory: Chest Non Tender, No Accessory Muscle Use, No Respiratory Distress, Decreased Breath Sounds Cardiovascular: Regular Rate, Rhythm Capillary Refill: Less Than 3 Seconds Gastrointestinal: normal bowel sounds, non tender, soft Extremity: Normal Capillary Refill, Normal Inspection Neurologic/Psychiatric: Alert, Oriented x3 Skin: Normal Color, Warm/Dry Lymphatic: No Adenopathy Results Lab Laboratory Tests 04/25/20 05:58 04/25/20 06:06 04/26/20 05:32 Assessment/Plan Assessment/Plan COVID PNA with hypoxia - NC 4 liters -rocephin and azithromycin -Decadron 6mg PO daily -CVP -pending -Remdesivir HTN with tachycardia -Add Lopressor, Lisinopril Leukopenia -monitor Anemia -Monitor Morbid obesity MARY GERMAIN DO Apr 26, 2020 06:12
--- NOTE | 2020-04-26 07:55 | Diagnostic Imaging Report ---
Indication: Short of breath Comparison is made with a prior study from 04/24/2020. Upright portable chest shows cardiomegaly with mild pulmonary venous distention. No infiltrates are seen. There is no effusion or pneumothorax. IMPRESSION: Cardiomegaly with no failure. No infiltrates are evident. Dictated by: Dictated on workstation # [id number]
[2020-04-26] MEDS: AZITHROMYCIN 250 MG TAB (ZITHROMAX) PO SCH (08:34)
[2020-04-26] MEDS: FAMOTIDINE 20 MG (PEPCID) TABLET PO SCH ×2 (08:34→20:35)
[2020-04-26] MEDS: meTOprolol TARTRATE 50 MG (LOPRESSOR) TAB PO SCH ×2 (08:34→20:35)
[2020-04-26] MEDS: lisINopril 10 MG (PRINIVIL) TABLET PO SCH (08:34)
[2020-04-26] MEDS: REMDESIVIR INJ 100 MG in NS (IVPB) 230 ML IV SCH (15:15)
[2020-04-27] VITALS: BP 140/88
[2020-04-27 03:57] VITALS: BP 144/86
[2020-04-27] MEDS: RT-ALBUTEROL INHALER HFA (VENTOLIN HFA) 18 GM IH SCH ×2 (05:18→06:56)
[2020-04-27] MEDS ORDERED: cefTRIAXone 1,000 MG IV (ROCEPHIN) VIAL ONE ×2 (05:36→07:48)
[2020-04-27] MEDS ORDERED: WATER (STERILE) FOR INJECTION 10 ML ONE ×2 (05:36→07:48)
[2020-04-27] MEDS: ENOXAPARIN 60 MG/0.6 ML (LOVENOX) SYR SC SCH (05:46)
[2020-04-27] MEDS: cefTRIAXone FOR IV USE 1,000 MG in WATER (STERILE) FOR INJECTION 10 ML IV SCH (05:46)
[2020-04-27 06:18] LABS: ALBUMIN 3.5 GM/DL (3.2-4.5); CHLORIDE 106 MMOL/L (98-107); POTASSIUM 3.5 MMOL/L (3.6-5.0); SODIUM 143 MMOL/L (135-145)
[2020-04-27 06:19] LABS: CALCIUM 8.3 MG/DL (8.5-10.1)
[2020-04-27 06:21] LABS: GLUCOSE 192 MG/DL (70-105); TOTAL PROTEIN 6.3 GM/DL (6.4-8.2)
[2020-04-27 06:22] LABS: BILIRUBIN,TOTAL 0.4 MG/DL (0.1-1.0); CARBON DIOXIDE 22 MMOL/L (21-32)
[2020-04-27 06:24] LABS: ALKALINE PHOSPHATASE 148 U/L (40-136); CREATININE SERUM 0.91 MG/DL (0.60-1.30); GFR ESTIMATED > 60
[2020-04-27 06:25] LABS: BUN/CREATININE RATIO 15
[2020-04-27 06:27] LABS: ALANINE AMINOTRANSFERASE 109 U/L (0-55)
[2020-04-27] MEDS ORDERED: LISI-552 PO (07:32)
[2020-04-27] MEDS ORDERED: METO50TA15 PO (07:32)
[2020-04-27] MEDS ORDERED: CEFD300C3 PO (07:32)
[2020-04-27 08:00] VITALS: BP 145/82
[2020-04-27] MEDS: AZITHROMYCIN 250 MG TAB (ZITHROMAX) PO SCH (08:56)
[2020-04-27] MEDS: FAMOTIDINE 20 MG (PEPCID) TABLET PO SCH (08:56)
[2020-04-27] MEDS: meTOprolol TARTRATE 50 MG (LOPRESSOR) TAB PO SCH (08:56)
[2020-04-27] MEDS ORDERED: lisINopril 20 MG (PRINIVIL) TABLET PO SCH (09:00)
[2020-04-27] MEDS ORDERED: CEFDINIR 300 MG (OMNICEF) CAP PO NR (09:15)
[2020-04-27 10:50] VITALS: BP 145/82
== END 2020-04-27 10:50 | disposition home or self-care (01) | DRG 177 ==
LOC: EDUNIT# 13:04 → ER 13:07 → CSD 14:30 → 4TH 04-26 15:07
PROVIDERS: ADMIT Family Medicine; ATTEND Internal Medicine
PROC: XW033E5 Introduction of Remdesivir Anti-infective into Peripheral Vein, Percutaneous Approach, New Technology Group 5 (ICD-10-PCS; principal; 2020-04-23)
DX: U07.1 COVID-19 (principal); J12.82 Pneumonia due to coronavirus disease 2019; J96.01 Acute respiratory failure with hypoxia; Z68.44 Body mass index [BMI] 60.0-69.9, adult; I10 Essential (primary) hypertension; R00.0 Tachycardia, unspecified; D64.9 Anemia, unspecified; E66.01 Morbid (severe) obesity due to excess calories; Z73.0 Burn-out; Z79.891 Long term (current) use of opiate analgesic
CPT/HCPCS: 36415; 71045; 76937; 80053; 81000; 82805; 83605; 84145; 85025; 85379; 85610; 85730; 86141; 87040; 87088; 94640; 94664; 94760; 94761

== ENCOUNTER 2021-04-04 13:49 | Emergency (ER) | payer OTHER ==
[~2021-04-04] VITALS: Ht 187 cm; Wt 227.0 kg
[~2021-04-04 13:49] MED LIST changes: +CEFD300C3 PO; +CETI10TA17 PO; +LISI20TA26 PO; +METO50TA15 PO; +NAPR220C11 PO; +PEG15DRO9 OU
--- NOTE | 2021-04-04 13:58 | ED Chest Pain ---
General Stated Complaint: SVT Source: patient, EMS Exam Limitations: no limitations History of Present Illness Date Seen by Provider: Apr 04, 2021 Time Seen by Provider: 13:55 Initial Comments To ER with reports of SVT. 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 His primary care provider is Dr. Thomas. At about 10 AM this morning he developed some tightness in his chest as well as palpitations. After a few hours of this he asked staff to check him out and they found his heart rate to be 214 regular narrow complex. He was instructed in vagal maneuvers and shortly after that he converted to sinus tach. No fevers chills cough or shortness of breath. He has had Covid vaccinations and was a dmitted to the hospital in April of this year for Covid. He is not oxygen dependent at home. He takes lisinopril as his only medication for hypertension. He is not aware of any other medical conditions aside from his obesity he states. He is not known to be diabetic though EMS found his blood sugar to be 314. At this time he feels back to normal. Timing/Duration: changing over time Severity/Quality: moderate Location: substernal Radiation: no radiation Activities at Onset: none ASA po SEAMING MACHINE OPERATOR: No NTG SL SEAMING MACHINE OPERATOR: No Associated Symptoms: No headache, No nausea/vomiting Allergies and Home Medications Allergies Coded Allergies: No Known Drug Allergies (Unverified , 05/24/14) Patient Home Medication List Home Medication List Reviewed: Yes Cefdinir (Cefdinir) 300 Mg Capsule, 300 MG PO BID Prescribed by: ELLI CAMARGO on 04/27/20731 Cetirizine HCl (Cetirizine HCl) 10 Mg Tablet, 10 MG PO DAILY, (Reported) Entered as Reported by: SELENA CAZARES on 04/24/20 140 Lisinopril (Lisinopril) 20 Mg Tablet, 20 MG PO DAILY Prescribed by: ELLI CAMARGO on 04/27/20731 Metoprolol Tartrate (Metoprolol Tartrate) 50 Mg Tablet, 50 MG PO BID Prescribed by: ELLI CAMARGO on 04/27/20731 Naproxen Sodium (Aleve) 220 Mg Capsule, 220 MG PO BID PRN for PAIN-MILD (1-4), (Reported) Entered as Reported by: SELENA CAZARES on 04/24/20 1404 Peg 400/Hypromellose/Glycerin (Visine Dry Eye Relief Drop) 15 Ml Drops, 1 DROP OU DAILY PRN for DRY EYES, (Reported) Entered as Reported by: SELENA CAZARES on 04/24/201403 Review of Systems Review of Systems Constitutional: see HPI EENTM: No Symptoms Reported Respiratory: No Symptoms Reported Cardiovascular: See HPI, Chest Pain Gastrointestinal: No Symptoms Reported Genitourinary: No Symptoms Reported Musculoskeletal: no symptoms reported Skin: no symptoms reported Psychiatric/Neurological: No Symptoms Reported Endocrine: No Symptoms Reported Hematologic/Lymphatic: No Symptoms Reported Past Emiihpt-Pnwuxb-Cduney Hx Immunizations Up To Date Tetanus Booster (TDap): Unknown Past Medical History Surgeries: Yes Gallbladder Respiratory: No Cardiac: No Neurological: No Reproductive Disorders: No Sexually Transmitted Disease: No HIV/AIDS: No Gastrointestinal: No Musculoskeletal: No Endocrine: No Cancer: No Psychosocial: No Integumentary: No Blood Disorders: No Adverse Reaction/Blood Tranf: No Physical Exam Vital Signs Vital Signs - First Documented 04/04/21 13:49 Temp 35.7 Pulse 119 Pulse Ox 93 O2 Delivery Room Air Capillary Refill : Height, Weight, BMI Height: 6'2" Weight: 440lbs. oz. 199.980282xw; 61.07 BMI Method: General Appearance: No Apparent Distress, WD/WN, Obese HEENT: PERRL/EOMI, TMs Normal Respiratory: Normal Breath Sounds, No Accessory Muscle Use, No Respiratory Distress Cardiovascular: Normal Peripheral Pulses, Tachycardia (Telemetry shows narrow complex regular sinus rhythm at 120 here.) Gastrointestinal: Normal Bowel Sounds, Non Tender, Soft Extremity: Normal Capillary Refill, Normal Inspection Neurologic/Psychiatric: Alert, Oriented x3 Skin: Normal Color, Warm/Dry Progress/Results/Core Measures Results/Orders Lab Results Laboratory Tests Test 04/04/21 13:55 Range/Units White Blood Count 8.7 4.3-11.0 10^3/uL Red Blood Count 5.88 H 4.30-5.52 10^6/uL Hemoglobin 14.8 13.3-17.7 g/dL Hematocrit 49 40-54 % Mean Corpuscular Volume 83 80-99 fL Mean Corpuscular Hemoglobin 25 25-34 pg Mean Corpuscular Hemoglobin Concent 30 L 32-36 g/dL Red Cell Distribution Width 16.9 H 10.0-14.5 % Platelet Count 281 130-400 10^3/uL Mean Platelet Volume 9.7 9.0-12.2 fL Immature Granulocyte % (Auto) 1 % Neutrophils (%) (Auto) 67 42-75 % Lymphocytes (%) (Auto) 21 12-44 % Monocytes (%) (Auto) 7 0-12 % Eosinophils (%) (Auto) 4 0-10 % Basophils (%) (Auto) 0 0-10 % Neutrophils # (Auto) 5.8 1.8-7.8 10^3/uL Lymphocytes # (Auto) 1.8 1.0-4.0 10^3/uL Monocytes # (Auto) 0.6 0.0-1.0 10^3/uL Eosinophils # (Auto) 0.3 0.0-0.3 10^3/uL Basophils # (Auto) 0.0 0.0-0.1 10^3/uL Immature Granulocyte # (Auto) 0.1 0.0-0.1 10^3/uL Prothrombin Time 13.0 12.2-14.7 SEC INR Comment 0.9 0.8-1.4 Activated Partial Thromboplast Time 25 24-35 SEC Sodium Level 140 135-145 MMOL/L Potassium Level 4.4 3.6-5.0 MMOL/L Chloride Level 104 98-107 MMOL/L Carbon Dioxide Level 21 21-32 MMOL/L Anion Gap 15 H 5-14 MMOL/L Blood Urea Nitrogen 17 7-18 MG/DL Creatinine 1.11 0.60-1.30 MG/DL Estimat Glomerular Filtration Rate 70 BUN/Creatinine Ratio 15 Glucose Level 340 H 70-105 MG/DL Calcium Level 9.3 8.5-10.1 MG/DL Corrected Calcium 9.6 8.5-10.1 MG/DL Magnesium Level 1.9 1.6-2.4 MG/DL Total Bilirubin 0.3 0.1-1.0 MG/DL Aspartate Amino Transf (AST/SGOT) 30 5-34 U/L Alanine Aminotransferase (ALT/SGPT) 34 0-55 U/L Alkaline Phosphatase 127 40-136 U/L Myoglobin 50.4 10.0-92.0 NG/ML Troponin I < 0.028 <0.028 NG/ML Total Protein 6.5 6.4-8.2 GM/DL Albumin 3.6 3.2-4.5 GM/DL My Orders Orders - MARY TEJADA APRN Cbc With Automated Diff (04/04/21 13:54) Magnesium (04/04/21 13:54) Chest 1 View, Ap/Pa Only (04/04/21 13:54) Ekg Tracing (04/04/21 13:54) Comprehensive Metabolic Panel (04/04/21 13:54) Myoglobin Serum (04/04/21 13:54) Protime With Inr (04/04/21 13:54) Partial Thromboplastin Time (04/04/21 13:54) O2 (04/04/21 13:54) Monitor-Rhythm Ecg Trace Only (04/04/21 13:54) Lipid Panel (04/05/21 06:00) Ed Iv/Invasive Line Start (04/04/21 13:54) Troponin I [place] (04/04/21 13:54) Hemoglobin A1c (04/04/21 13:58) Lactated Ringers (Lr 1000 Ml Iv Solution (04/04/21 14:00) Vital Signs/I&O 04/04/21 13:49 Temp 35.7 Pulse 119 B/P (MAP) Pulse Ox 93 O2 Delivery Room Air Departure Communication (Admissions) NAME: STEFANO HONG MED REC#: [id number] PT STATUS: REG ER : 1970 PHYSICIAN: MARY TEJADA APRN ADMIT DATE: 04/04/21/ER Draft Date of Exam:04/04/21 CHEST 1 VIEW, AP/PA ONLY CLINICAL INDICATION: Patient with chest pain. Patient did not feel well when he went to work and felt like heart was racing. Patient was found to be in SVT and attempted vagal maneuvers. Patient was converted to normal sinus rhythm by EMS prior to arrival. EXAM: Portable chest x-ray, upright view. COMPARISON: Chest x-ray dated 04/26/2020. FINDINGS: There is stable cardiomegaly with no significant pulmonary vascular congestion. There are curvilinear opacities in the right lung base and left lung base regions which may represent atelectasis. There is no pleural effusion or pneumothorax. The bones show no significant abnormality. IMPRESSION: 1: Stable cardiomegaly with no significant pulmonary vascular congestion. 2: Suspected bibasilar atelectasis. Dictated on workstation # [id number] Dict: 04/04/21 1413 Trans: 04/04/21 1420 [id number] Interpreted by: DAYDAY ROSENBAUM MD Electronically signed by: Impression Primary Impression: SVT (supraventricular tachycardia) Additional Impression: Diabetes Disposition: HOME, SELF-CARE Condition: Stable Departure-Patient Inst. Decision time for Depature: 14:40 Patient Instructions: Supraventricular Tachycardia (SVT) Add. Discharge Instructions: 1. Return to ER for any concerns 2. Follow-up with Dr. Robertson. Start the Metformin in the meantime for the high blood sugar. On your labs it was measured at 340. Scripts Metformin HCl (Metformin HCl) 500 Mg Tablet 500 MG PO BID, #60 TAB Prov: MARY TEJADA APRN 04/04/21 Copy Copies To 1: FRANSISCA ROBERTSON MD, PETER J APRN Apr 04, 2021 13:58
[2021-04-04] MEDS ORDERED: LACTATED RINGERS 1,000 ML IV SCH (14:00)
[2021-04-04 14:03] LABS: BASOPHILS % (AUTO) 0 % (0-10); EOSINOPHILS # (AUTO) 0.3 10^3/uL (0.0-0.3); EOSINOPHILS % (AUTO) 4 % (0-10); HEMATOCRIT 49 % (40-54); HEMOGLOBIN 14.8 g/dL (13.3-17.7); LYMPHOCYTES # (AUTO) 1.8 10^3/uL (1.0-4.0); LYMPHOCYTES % (AUTO) 21 % (12-44); MEAN CORPUSCULAR HEMOGLOBIN 25 pg (25-34); MEAN CORPUSCULAR HGB CONC 30 g/dL (32-36); MEAN CORPUSCULAR VOLUME 83 fL (80-99); MEAN PLATELET VOLUME 9.7 fL (9.0-12.2); MONOCYTES # (AUTO) 0.6 10^3/uL (0.0-1.0); MONOCYTES % (AUTO) 7 % (0-12); NEUTROPHILS # (AUTO) 5.8 10^3/uL (1.8-7.8); NEUTROPHILS % (AUTO) 67 % (42-75); PLATELET COUNT 281 10^3/uL (130-400); WHITE BLOOD COUNT 8.7 10^3/uL (4.3-11.0)
[2021-04-04 14:17] LABS: INR 0.9 (0.8-1.4)
--- NOTE | 2021-04-04 14:21 | Diagnostic Imaging Report ---
CLINICAL INDICATION: Patient with chest pain. Patient did not feel well when he went to work and felt like heart was racing. Patient was found to be in SVT and attempted vagal maneuvers. Patient was converted to normal sinus rhythm by EMS prior to arrival. EXAM: Portable chest x-ray, upright view. COMPARISON: Chest x-ray dated 04/26/2020. FINDINGS: There is stable cardiomegaly with no significant pulmonary vascular congestion. There are curvilinear opacities in the right lung base and left lung base regions which may represent atelectasis. There is no pleural effusion or pneumothorax. The bones show no significant abnormality. IMPRESSION: 1: Stable cardiomegaly with no significant pulmonary vascular congestion. 2: Suspected bibasilar atelectasis. Dictated by: Dictated on workstation # [id number]
[2021-04-04 14:32] LABS: ALBUMIN 3.6 GM/DL (3.2-4.5); BILIRUBIN,TOTAL 0.3 MG/DL (0.1-1.0); CALCIUM 9.3 MG/DL (8.5-10.1); CREATININE SERUM 1.11 MG/DL (0.60-1.30); MAGNESIUM 1.9 MG/DL (1.6-2.4); POTASSIUM 4.4 MMOL/L (3.6-5.0); TOTAL PROTEIN 6.5 GM/DL (6.4-8.2)
[2021-04-04] MEDS ORDERED: METF-397 PO (14:42)
[2021-04-04 15:01] VITALS: BP 129/105
== END 2021-04-04 15:00 | disposition home or self-care (01) ==
LOC: EDUNIT# 13:49 → ER 13:51
DX: I47.1 Supraventricular tachycardia (principal); I10 Essential (primary) hypertension; E66.9 Obesity, unspecified; Z79.899 Other long term (current) drug therapy
CPT/HCPCS: 36415; 71045; 80053; 83036; 83735; 83874; 84484; 85025; 85610; 85730; 93005; 93041